=== PATIENT | female | born 1970 | race Caucasian/White ===

== ENCOUNTER 2018-04-12 06:33 | Day surgery (SDC) | payer MEDICAID ==
[2018-04-12] MEDS: SOD CHLORIDE 0.9% 1,000 ML IV (10:00)
[2018-04-12] MEDS: MIDAZOLAM 1 MG/ML 2 ML INJ (10:40)
[2018-04-12] MEDS: FENTAnyl 50 MCG/ML VIAL (10:40)
[2018-04-12] MEDS: SOD CHLORIDE 0.9% 500 ML (10:40)
[2018-04-12] MEDS: HEPARIN 1000 UNITS/ML 10 ML INJ (10:40)
[2018-04-12] MEDS: LIDOCAINE 1%/EPI 30 ML INJ (10:46)
== END 2018-04-12 16:02 | disposition home or self-care (01) ==
LOC: SDS 06:33
DX: C50.911 Malignant neoplasm of unspecified site of right female breast (principal)
CPT/HCPCS: 36561; 76942; 93306